=== PATIENT | male | born 1980 | race Caucasian/White ===

== ENCOUNTER 2020-03-03 00:31 | Emergency (ER) | payer OTHER ==
[~2020-03-03] VITALS: Ht 170.2 cm; Wt 72.6 kg
[2020-03-03 00:33] VITALS: Ht 170.2 cm; Wt 72.6 kg
== END 2020-03-03 02:22 | disposition other institution (70) ==
LOC: ED 00:31
DX: Z02.89 Encounter for other administrative examinations (principal)